=== PATIENT | male | born 1970 | race Two or more races ===

== ENCOUNTER 2016-09-27 21:46 | Emergency (ER) | payer OTHER ==
[2016-09-27 22:18] LABS: URINE BILIRUBIN NEGATIVE (NEGATIVE); URINE BLOOD NEGATIVE (NEGATIVE); URINE GLUCOSE (UA) NEGATIVE (NEGATIVE); URINE LEUKOCYTE ESTERASE NEGATIVE (NEGATIVE); URINE NITRITE NEGATIVE (NEGATIVE); URINE PROTEIN NEGATIVE (NEGATIVE); URINE UROBILINOGEN NORMAL (0-1 mg/dl)
[2016-09-27 22:24] LABS: URINE APPEARANCE CLEAR; URINE COLOR YELLOW
[2016-09-27] MEDS ORDERED: CYCLOBENZAPRINE HCL 10 MG TABLET ONE (22:43)
== END 2016-09-27 23:00 | disposition home or self-care (01) ==
LOC: ED 21:46
DX: G44.209 Tension-type headache, unspecified, not intractable (principal)